=== PATIENT | male | born 1975 | race Caucasian/White ===

== ENCOUNTER 2022-09-22 10:18 | Emergency (ER) | payer SELFPAY ==
[~2022-09-22] VITALS: Ht 165.1 cm; Wt 68.5 kg
--- NOTE | 2022-09-22 10:28 | NUR ---
Pt in Bed. Wound care completed on Nose laceration
[2022-09-22 11:35] VITALS: BP 138/98
== END 2022-09-22 11:15 | disposition home or self-care (01) ==
LOC: ER 10:25
DX: S01.21XA Laceration without foreign body of nose, initial encounter (principal); E11.9 Type 2 diabetes mellitus without complications; Z60.2 Problems related to living alone; W20.8XXA Other cause of strike by thrown, projected or falling object, initial encounter; Y93.89 Activity, other specified; Y92.89 Other specified places as the place of occurrence of the external cause; Y99.8 Other external cause status